=== PATIENT | female | born 1945 | race Caucasian/White ===

== ENCOUNTER 2016-10-10 11:00 | Outpatient (CLI) | payer OTHER ==
--- NOTE | 2016-10-10 13:01 | DIAGNOSTIC IMAGING REPORT ---
PROCEDURE: MG BILATERAL SCREENING W/CAD INDICATION: SCREENING. Family history (grandmother, niece and sister) TECHNIQUE: Bilateral CC and MLO digital views. COMPARISON: Mammograms 09/10/2015, 06/21/2014 and 06/03/2013. FINDINGS: Computer-aided detection applied. Moderately dense. Scattered dystrophic calcifications. No change. IMPRESSION: 1. Negative mammogram RESULT CODE: 1- Negative. A. A negative report should not delay biopsy if a dominant or clinically suspicious mass is present. 10-15% of cancers are not identified by x-ray. B. A negative report may reinforce clinical impression. C. Adenosis and dense breasts may obscure an underlying neoplasm. D. False positive reports average 6-10%. E.. A yearly screening mammogram is recommended. A reminder letter will be scheduled.
== END 2016-10-10 23:00 ==
LOC: MAM SRH 11:00
DX: Z12.31 Encounter for screening mammogram for malignant neoplasm of breast (principal); Z80.3 Family history of malignant neoplasm of breast

== ENCOUNTER 2017-03-02 15:54 | Outpatient (CLI) | payer OTHER ==
--- NOTE | 2017-03-02 16:42 | DIAGNOSTIC IMAGING REPORT ---
PROCEDURE: XR HIP 2VW W W/O AP PELVIS-LT INDICATION: HIP JOINT PAIN TECHNIQUE: AP view of the pelvis and hips with lateral view of the left hip. COMPARISON: None. FINDINGS: Left HIP: There is osteoarthritis with the narrowing of the joint space. PELVIS: Osseous pelvis is normal. IMPRESSION: 1. 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
== END 2017-03-02 23:00 ==
LOC: XR SRH 15:54
DX: M16.12 Unilateral primary osteoarthritis, left hip (principal); M25.562 Pain in left knee